=== PATIENT | female | born 1950 | race Caucasian/White ===

== ENCOUNTER 2017-04-19 18:15 | Emergency (ER) | payer MEDICARE, OTHER ==
[~2017-04-19] VITALS: Ht 165.1 cm; Wt 83.9 kg
[~2017-04-19 18:15] MED LIST: BENTYL10 MG PO; OMEP20ER PO; Synthroid/Le0.075 MG PO
[2017-04-19 19:26] LABS: BASOPHILS ABSOLUTE AUTO 0.03 K/mm3 (0.00-0.23); BASOPHILS PERCENT AUTO 0 % (0-2); EOSINOPHILS ABSOLUTE AUTO 0.15 K/mm3 (0.00-0.68); EOSINOPHILS PERCENT AUTO 2 % (0-6); Hematocrit 43.3 % (33.0-51.0); Hemoglobin 13.9 g/dL (11.5-16.0); IMMATURE GRAN ABSOLUTE AUTO 0.01 K/mm3 (0.00-0.10); IMMATURE GRAN PERCENT AUTO 0 % (0-1); LYMPHOCYTES PERCENT AUTO 19 % (21-46); MONOCYTES ABSOLUTE AUTO 0.57 K/mm3 (0.16-1.47); MONOCYTES PERCENT AUTO 8 % (4-13); Mean Corpuscular HGB 28.8 pg (26.0-34.0); Mean Corpuscular HGB Conc 32.1 g/dL (31.5-36.5); Mean Corpuscular Volume 90 fL (80-100); Mean Platelet Volume 10.8 fL (9.1-12.4); NEUTROPHILS ABSOLUTE AUTO 4.71 K/mm3 (1.96-9.15); NEUTROPHILS PERCENT AUTO 70 % (41-73); Platelet Count 267 K/mm3 (150-400); RDW Coefficient Variation 13.2 % (11.7-14.2); RDW Standard Deviation 43.5 fL (35.1-46.3); Red Blood Cell Count 4.83 M/mm3 (3.80-5.20); White Blood Cell Count 6.77 K/mm3 (4.00-11.30)
[2017-04-19 19:41] LABS: Alanine Aminotransfer (ALT/SGP 30 U/L (12-78); Albumin, Blood 3.9 g/dL (3.4-5.0); Albumin/Globulin Ratio 0.9 (0.8-1.8); Alk Phos 105 U/L (50-136); Anion Gap 6 mmol/L (6-16); Aspartate Aminotrans (AST/SGOT 24 U/L (12-37); Bilirubin, Total 0.3 mg/dL (0.1-1.0); Blood Urea Nitrogen 19 mg/dL (8-24); Bun/Creatinine Ratio 17.9 (12.0-20.0); CO2, Blood 27 mmol/L (21-32); Calcium, Blood 9.2 mg/dL (8.5-10.1); Chloride, Blood 106 mmol/L (98-108); Creatinine, Blood 1.06 mg/dL (0.40-1.00); Globulin, Blood 4.2 g/dL (2.2-4.0); Glomerular Filtration Rate 55 (60-); Glucose, Blood 100 mg/dL (70-99); Potassium, Blood 4.3 mmol/L (3.5-5.5); Sodium, Blood 139 mmol/L (136-145); Total Protein, Blood 8.1 g/dL (6.4-8.2); Troponin I <0.015 ng/mL (0.000-0.040)
[2017-12-22] MEDS ORDERED: IBUP800 PO (10:26)
== END 2017-04-19 21:40 | disposition home or self-care (01) ==
LOC: ER 18:15
PROVIDERS: Emergency Medicine
DX: R07.9 Chest pain, unspecified (principal); Z88.5 Allergy status to narcotic agent; Z88.8 Allergy status to other drugs, medicaments and biological substances; Z79.899 Other long term (current) drug therapy
CPT/HCPCS: 36415; 71046; 80053; 83880; 84484; 85025; 93005; 93010; 99283

== ENCOUNTER 2017-12-28 08:53 | Day surgery (SDC) | payer MEDICARE, OTHER ==
[~2017-12-28] VITALS: Ht 165.1 cm; Wt 83.9 kg
[~2017-12-28 08:53] MED LIST changes: +IBUP800 PO
== END 2017-12-28 11:23 | disposition home or self-care (01) ==
LOC: ORSCSDS 08:53
PROVIDERS: Internal Medicine Gastroenterology
PROC: 0DBL8ZX Excision of Transverse Colon, Via Natural or Artificial Opening Endoscopic, Diagnostic (ICD-10-PCS; principal; 2017-12-28 10:15)
PROC: 0DBN8ZX Excision of Sigmoid Colon, Via Natural or Artificial Opening Endoscopic, Diagnostic (ICD-10-PCS; principal; 2017-12-28 10:15)
DX: Z12.11 Encounter for screening for malignant neoplasm of colon (principal); Z86.010 Personal history of colon polyps; D12.3 Benign neoplasm of transverse colon; D12.5 Benign neoplasm of sigmoid colon; K57.30 Diverticulosis of large intestine without perforation or abscess without bleeding; K64.8 Other hemorrhoids; E03.9 Hypothyroidism, unspecified; Z79.899 Other long term (current) drug therapy
CPT/HCPCS: 88305; J7120

== ENCOUNTER 2018-05-12 10:46 | Emergency (ER) | payer MEDICARE, OTHER ==
[~2018-05-12] VITALS: Ht 165.1 cm; Wt 83.9 kg
[2018-05-12] MEDS ORDERED: BENZ100A PO (11:38)
== END 2018-05-12 11:41 | disposition home or self-care (01) ==
LOC: ER 10:46
DX: J02.9 Acute pharyngitis, unspecified (principal); Z88.5 Allergy status to narcotic agent; Z79.899 Other long term (current) drug therapy; E03.9 Hypothyroidism, unspecified; N18.9 Chronic kidney disease, unspecified
CPT/HCPCS: 87081; 87430; 99283

== ENCOUNTER 2018-11-09 06:12 | Day surgery (SDC) | payer MEDICARE, OTHER ==
[~2018-11-09] VITALS: Ht 165.1 cm; Wt 86.7 kg
[~2018-11-09 06:12] MED LIST changes: +BENZ100A PO; +IBUP800; +OMEPRAZOLE20 MG
--- NOTE | 2018-11-09 07:04 | NUR ---
11/09/18 0704 Djea Jones (Yaneth BLOOD PRESSURE CONSISTENTLY HIGH; PT DENIES ANY HISTORY OF HYPERTENSION. DR. COOPER & DR. CLEMENTS NOTIFIED.
== END 2018-11-09 09:01 | disposition home or self-care (01) ==
LOC: ORSCSDS 06:12
PROVIDERS: Podiatrist Foot & Ankle Surgery
PROC: 0QSN04Z Reposition Right Metatarsal with Internal Fixation Device, Open Approach (ICD-10-PCS; principal; 2018-11-09 07:30)
DX: M77.41 Metatarsalgia, right foot (principal); E03.9 Hypothyroidism, unspecified; K76.0 Fatty (change of) liver, not elsewhere classified; K21.9 Gastro-esophageal reflux disease without esophagitis; Z79.899 Other long term (current) drug therapy
CPT/HCPCS: C1713; J0171; J0690; J1885; J2250; J2405; J2704; J3010; J7120

== ENCOUNTER 2020-12-03 07:46 | Day surgery (SDC) | payer MEDICARE, OTHER ==
[~2020-12-03] VITALS: Ht 165.1 cm; Wt 80.1 kg
--- NOTE | 2020-12-03 08:20 | NUR ---
Ambulatory in Day Surgery. Patient up to Ambulate independently. Gait steady. Pre-Op teaching done. Pt verbalizes understanding. Lungs clear T/O to Auscultation. Patient confirms NPO status and agrees with scheduled surgery. Patient States Post-Procedure ride home has been arranged.
--- NOTE | 2020-12-03 09:18 | NUR ---
12/03/20 0918 Hortencia Delgado History, Chart, Medications and Allergies reviewed before start of procedure.PATIENT DETERMINED TO BE ASA APPROPRIATE FOR PROPOFOL SEDATION PRIOR TO START OF PROCEDURE BY .MONITOR INTACT WITH CONTINUOUS PULSE OXIMETRY AND INTERMITTENT BP.3-LEAD EKG REVIEWED WITH PHYSICIAN PRIOR TO START OF PROCEDURE.O2 VIA N/C INTACT THROUGHOUT SEDATION/PROCEDURE.
--- NOTE | 2020-12-03 10:32 | NUR ---
Discharge instructions reviewed with patient. Patient verbalizes understanding. Copy given to patient to take home. Discharged via wheelchair to private car for ride home.
== END 2020-12-03 10:33 | disposition home or self-care (01) ==
LOC: ORSCMMR 07:46 → ORSCSDS 09:00 → ORSCMMR 09:00 → ORSCSDS 15:00 → ORSCMMR 15:00
PROVIDERS: Internal Medicine Gastroenterology
PROC: 0DBM8ZX Excision of Descending Colon, Via Natural or Artificial Opening Endoscopic, Diagnostic (ICD-10-PCS; principal; 2020-12-03 09:00)
DX: Z12.11 Encounter for screening for malignant neoplasm of colon (principal); Z86.010 Personal history of colon polyps; D12.4 Benign neoplasm of descending colon; E03.9 Hypothyroidism, unspecified; Z79.899 Other long term (current) drug therapy
CPT/HCPCS: 88305; J7120

== ENCOUNTER 2021-11-30 11:54 | Emergency (ER) | payer MEDICARE, OTHER ==
[~2021-11-30] VITALS: Ht 162.6 cm; Wt 77.1 kg
[2021-11-30 13:04] LABS: BASOPHILS ABSOLUTE AUTO 0.04 K/mm3 (0.00-0.23); BASOPHILS PERCENT AUTO 1 % (0-2); EOSINOPHILS ABSOLUTE AUTO 0.14 K/mm3 (0.00-0.68); EOSINOPHILS PERCENT AUTO 3 % (0-6); Hematocrit 42.3 % (33.0-51.0); Hemoglobin 14.2 g/dL (11.5-16.0); IMMATURE GRAN ABSOLUTE AUTO 0.01 K/mm3 (0.00-0.10); IMMATURE GRAN PERCENT AUTO 0 % (0-1); LYMPHOCYTES ABSOLUTE AUTO 1.44 K/mm3 (0.84-5.20); LYMPHOCYTES PERCENT AUTO 26 % (21-46); MONOCYTES ABSOLUTE AUTO 0.58 K/mm3 (0.16-1.47); MONOCYTES PERCENT AUTO 10 % (4-13); Mean Corpuscular HGB 30.5 pg (26.0-34.0); Mean Corpuscular HGB Conc 33.6 g/dL (31.5-36.5); Mean Corpuscular Volume 91 fL (80-100); Mean Platelet Volume 10.8 fL (9.1-12.4); NEUTROPHILS ABSOLUTE AUTO 3.43 K/mm3 (1.96-9.15); NEUTROPHILS PERCENT AUTO 61 % (41-73); Platelet Count 239 K/mm3 (150-400); RDW Coefficient Variation 13.2 % (11.7-14.2); RDW Standard Deviation 44.8 fL (35.1-46.3); Red Blood Cell Count 4.66 M/mm3 (3.80-5.20); White Blood Cell Count 5.64 K/mm3 (4.00-11.30)
[2021-11-30 13:10] LABS: Source, Urine Clean Catch
[2021-11-30 13:20] LABS: Appearance, Urine Clear (Clear); Bilirubin, Urine Neg (Neg); Blood, Urine Neg (Neg); Color, Urine Yellow (P-Yellow); Glucose Qualitative, Urine Neg (Neg); Ketones, Urine Neg (Neg); Leukocyte Esterase, Urine 2+ (Neg); Nitrite, Urine Neg (Neg); Protein, Urine Neg (Neg); Urobilinogen, Urine NORM (Normal)
[2021-11-30 13:29] LABS: Albumin, Blood 3.7 g/dL (3.4-5.0); Albumin/Globulin Ratio 0.9 (0.8-1.8); Bilirubin, Total 0.4 mg/dL (0.1-1.0); Bun/Creatinine Ratio 16.9 (12.0-20.0); Calcium, Blood 8.9 mg/dL (8.5-10.1); Creatinine, Blood 0.95 mg/dL (0.40-1.00); Globulin, Blood 3.9 g/dL (2.2-4.0); Potassium, Blood 4.3 mmol/L (3.5-5.5); Total Protein, Blood 7.6 g/dL (6.4-8.2)
[2021-11-30 13:46] LABS: Bacteria Few /hpf; Red Blood Cells, Urine 0-2 /hpf (0-2); Squamous Epithelial Cells Few /hpf (Few)
== END 2021-11-30 17:08 | disposition home or self-care (01) ==
LOC: ER 11:54
PROVIDERS: Physician Assistant
DX: R10.30 Lower abdominal pain, unspecified (principal); R82.81 Pyuria; Z88.5 Allergy status to narcotic agent; Z79.890 Hormone replacement therapy; Z79.899 Other long term (current) drug therapy
CPT/HCPCS: 36415; 74177; 80053; 81001; 83690; 85025; 87086; 99284-25; Q9967

== ENCOUNTER 2024-03-14 07:59 | Day surgery (SDC) | payer MEDICARE, OTHER ==
[~2024-03-14] VITALS: Ht 165.1 cm; Wt 85.9 kg
[~2024-03-14 07:59] MED LIST changes: +ASPI81CH PO; +CARV6.25 PO; +Lactated Ringer's 1,000 ML IV ONE; -OMEPRAZOLE20 MG; +OMEPRAZOLE20 MG PO; +TRAM50 PO; +propofoL 50 ML IV ONE
[2024-03-14] MEDS ORDERED: VENL37.5ER (08:31)
[2024-03-14] MEDS ORDERED: Lactated Ringer's 1,000 ML IV ONE (08:42)
--- NOTE | 2024-03-14 09:01 | NUR ---
03/14/24 0901 Skye Domingo PT. DENIES ANY PAIN.
[2024-03-14] MEDS ORDERED: AMLO10 PO (09:04)
[2024-03-14 09:55] VITALS: BP 92/65
== END 2024-03-14 10:07 | disposition home or self-care (01) ==
LOC: ORSCSDS 07:59
PROVIDERS: Internal Medicine Gastroenterology
PROC: 0DJD8ZZ Inspection of Lower Intestinal Tract, Via Natural or Artificial Opening Endoscopic (ICD-10-PCS; principal; 2024-03-14 09:30)
DX: Z12.11 Encounter for screening for malignant neoplasm of colon (principal); Z86.0101 Personal history of adenomatous and serrated colon polyps; K64.4 Residual hemorrhoidal skin tags; K57.30 Diverticulosis of large intestine without perforation or abscess without bleeding; Z79.899 Other long term (current) drug therapy
CPT/HCPCS: J2704; J7120

== ENCOUNTER → 2025-01-14 | Outpatient (CLI) | payer MEDICARE, OTHER ==
[~2025-01-14] MED LIST changes: +AMLO10 PO; -Lactated Ringer's 1,000 ML IV ONE; +VENL37.5ER; -propofoL 50 ML IV ONE
[2025-01-14 11:55] LABS: Anion Gap 13.0 mmol/L (6-16); Blood Urea Nitrogen 16.0 mg/dL (8-24); CO2, Blood 29.0 mmol/L (21-32); Calcium, Blood 9.8 mg/dL (8.5-10.1); Chloride, Blood 103.0 mmol/L (98-108); Creatinine, Blood 1.39 mg/dL (0.40-1.00); Glucose, Blood 102.0 mg/dL (70-99); Potassium, Blood 4.1 mmol/L (3.5-5.5); Sodium, Blood 141.0 mmol/L (136-145); Thyroid Stimulating Hormone 7.562 uIU/mL (0.360-4.800)
== END ==
LOC: LAB 10:08 → LAB SHORT 10:08
PROVIDERS: Family Medicine
DX: E03.9 Hypothyroidism, unspecified (principal); N28.9 Disorder of kidney and ureter, unspecified; R73.03 Prediabetes
CPT/HCPCS: 36415; 80048; 83036; 84443